=== PATIENT | female | born 1955 | race Caucasian/White ===

== ENCOUNTER → 2016-10-18 | Outpatient (CLI) | payer BC ==
[~2016-10-18] MED LIST: ALLEGRA ALLERGY60 MG PO; ALPARAZOLAM0.5 MG PO; B12 INJ.,1000 MCG/M SL; BENTYL GENERIC10 MG PO; BYSTOLIC10 MG PO; CHEWABLE ASPIRI81 MG PO; DICYCLOMINE10 MG PO; FOSAMAX5 MG PO; HYDROXYCHLOROQ200 M1 PO; INDERAL 20MG. T20 MG PO; LEVOTHYROXINE0.05 M3 NG; MOBIC7.5 MG PO; MUCINEX D 12001 TER PO; MUCINEX600 M1 PO; NABUMETONE750 MG PO; NADOLOL 20 MG T20 MG PO; PROMETH W/ DEX480 ML PO; PYRIDIUM100 MG PO; SUMATRIPTAN SUC50 MG OR; VITAMIN D50000 I1 PO; ZOLPIDEM5 MG PO; ZYRTEC10 M2 PO; [UNRECOGNIZED DRUG - OTHER] PO
--- NOTE | 2016-10-24 10:00 | RADIOLOGY REPORT PS360 ---
UGI ESOPHAGUS W/O AIR HISTORY: ABDOMINAL PAIN,OROPHARYNGEAL DYSPHAGIA ORDERING PHYSICIAN: Malik Nazario MD PATIENT AGE: 61 years COMPARISON: None FINDINGS: There is a small sliding hiatal hernia. Reflux wasn't demonstrated during the exam. There is a non-constricting Schatzki's ring. The stomach and duodenum have an unremarkable appearance.. No ulcer or mass evident. No mucosal abnormalities apparent. There is normal peristalsis. The duodenal C-loop is nondisplaced. FLUOROSCOPY TIME : 1 minute and 50 seconds. IMPRESSION: Small sliding hiatal hernia with nonconstricting Schatzki's ring with gastroesophageal reflux
== END ==
LOC: RAD 09:00
DX: R10.84 Generalized abdominal pain (principal); R13.12 Dysphagia, oropharyngeal phase

== ENCOUNTER 2016-11-17 13:15 | Outpatient (CLI) | payer BC ==
[2016-11-17 13:33] VITALS: BP 146/65
[2016-11-17] MEDS ORDERED: FUROSEMIDE 20MG20 MG PO (13:33)
== END 2016-11-17 13:55 | disposition home or self-care (01) ==
LOC: COP 13:15
DX: M85.88 Other specified disorders of bone density and structure, other site (principal)
CPT/HCPCS: J0897

== ENCOUNTER → 2017-05-29 | Outpatient (CLI) | payer BC ==
[~2017-05-29] MED LIST changes: +DULOXETINE 30MG30 MG FT; +FUROSEMIDE 20MG20 MG PO
[2017-05-29 14:05] VITALS: BP 164/85
== END ==
LOC: COP 13:00
DX: Z78.0 Asymptomatic menopausal state (principal)
CPT/HCPCS: J0897